=== PATIENT | female | born 1985 ===

== ENCOUNTER 2018-11-15 18:57 | Emergency (ER) | payer MEDICAID ==
--- NOTE | 2018-11-15 20:15 | ED PDOC ---
HPI: Headache Time Seen by Provider: 11/15/18 19:21 Chief Complaint (Nursing): Dizziness/Lightheaded History Per: Patient History/Exam Limitations: no limitations Onset/Duration Of Symptoms: Hrs Current Symptoms Are (Timing): Intermittent Episodes Additional Complaint(s): 33 year old with no PMHx presenting with dizziness and headache today. States felt yesterday that she had intermittent dizziness that went away quickly and spontaneously, associated with intermittent palpitations. She states that around 630-7PM she started having worsening of the dizziness, especially when changing positions. She describes the dizziness as a room spinning sensation, feels as though if she tries to walk again she will fall to the side or fall down. States the dizziness also brings on a throbbing headache. Feels better when lying flat. Denies shortness of breath, sweats. PMD: Dr. Waterman Past Medical History Reviewed: Historical Data, Nursing Documentation, Vital Signs Vital Signs: Last Vital Signs Temp 98.2 F 11/15/18 19:01 Pulse 78 11/15/18 19:01 Resp 16 11/15/18 19:01 BP 145/82 11/15/18 19:01 Pulse Ox 99 11/15/18 19:01 Primary Care Provider: DoctorMaryam - Medical History PMH: No Chronic Diseases - Surgical History Surgical History: - Family History Family History: States: Unknown Family Hx - Home Medications Home Medications: Ambulatory Orders Medication Instructions Recorded Meclizine [Meclizine*] 25 mg PO Q6 #30 tab 11/15/18 - Allergies Allergies/Adverse Reactions: Allergies Allergy/AdvReac Type Severity Reaction Status Date / Time No Known Allergies Allergy Verified 11/15/18 18:59 Review of Systems ROS Statement: Except As Marked, All Systems Reviewed And Found Negative Cardiovascular: Positive for: Palpitations Neurological: Positive for: Headache, Dizziness Physical Exam - Reviewed Nursing Documentation Reviewed: Yes Vital Signs Reviewed: Yes - Physical Exam Appears: Positive for: Well, Non-toxic, No Acute Distress Head Exam: Positive for: ATRAUMATIC, NORMAL INSPECTION, NORMOCEPHALIC Skin: Positive for: Normal Color, Warm, DRY Eye Exam: Positive for: EOMI, Normal appearance, PERRL ENT: Positive for: Normal ENT Inspection Neck: Positive for: Normal, Painless ROM Cardiovascular/Chest: Positive for: Regular Rate, Rhythm Respiratory: Positive for: CNT, Normal Breath Sounds Gastrointestinal/Abdominal: Positive for: Normal Exam, Soft Back: Positive for: Normal Inspection Extremity: Positive for: Normal ROM Neurological/Psych: Positive for: Awake, Alert, Normal Tone, Symmetric/Intact Strength, Cerebellar Tests (Intact), 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 Negative for: Motor/Sensory Deficits, Facial Droop - ECG O2 Sat by Pulse Oximetry: 99 Pulse Ox Interpretation: Normal Medical Decision Making Medical Decision Makin33 year old with no PMHx presenting with dizziness --Patient appears very well, normal vitals, nonfocal exam --By history, symptoms consistent with peripheral vertigo --Will check head CT to rule out intracranial pathology, not concerned for cerebellar pathology --Will give NSAID, meclizine, and re-eval 22:00 --CT negative --Patient is feeling much improved, no longer dizzy --EKG, FS normal --Advised patient to followup with her PMD, take plenty of fluids, meclizine as needed --Very well appearing upon discharge Disposition - Clinical Impression Clinical Impression: Vertigo - Disposition Referrals: Blaise Ruvalcaba MD [Family Provider] - Disposition: Routine/Home Disposition Time: 22:00 Condition: IMPROVED Prescriptions: Meclizine [Meclizine*] 25 mg PO Q6 #30 tab Instructions: Vertigo (a Type of Dizziness) Forms: [facility] (Tristanian) Print Language: KHMER
[2018-11-15 22:26] VITALS: BP 103/67; PULSE 57; RESP 17; TEMP 98.3
[2018-11-16 00:21] VITALS: O2SAT 99
--- NOTE | 2018-11-16 10:10 | CT ---
Date of service: 11/15/2018 PROCEDURE: CT HEAD WITHOUT CONTRAST. HISTORY: dizziness, headache COMPARISON: None available. TECHNIQUE: Axial computed tomography images were obtained through the head/brain without intravenous contrast. Radiation dose: Total exam DLP = 798.81 mGy-cm. This CT exam was performed using one or more of the following dose reduction techniques: Automated exposure control, adjustment of the mA and/or kV according to patient size, and/or use of iterative reconstruction technique. FINDINGS: HEMORRHAGE: No intracranial hemorrhage. BRAIN: Teixeira-white matter differentiation is preserved. There is no mass, mass effect or abnormal extra-axial fluid collection. There is no territorial infarction. The midline sagittal structures are normal. VENTRICLES: The ventricles are normal in size, shape and configuration. CALVARIUM: There is no calvarial fracture or extracranial soft tissue swelling. PARANASAL SINUSES: Predominantly clear. MASTOID AIR CELLS: Predominantly clear. OTHER FINDINGS: There is dense falx calcification. IMPRESSION: No acute intracranial abnormality. A preliminary report was provided by [employer].
--- NOTE | 2018-11-16 10:33 | CARD ---
APPROVED REPORT Date of service: 11/15/2018 EKG Measurement Heart [id number] <Conclusion> Sinus bradycardia with marked sinus arrhythmia Otherwise normal ECG
== END 2018-11-15 22:25 | disposition home or self-care (01) ==
LOC: H.ER 18:57
DX: R42 Dizziness and giddiness (principal)